=== PATIENT | female | born 1955 | race Caucasian/White ===

== ENCOUNTER → 2017-04-07 | Outpatient (CLI) | payer BC ==
[~2017-04-07] MED LIST: AMIO200T42 PO; APIX5TAB PO; ASCO1TAB15 PO; ASPI325T17 PO; CART1TAB4 PO; KRIL1CAP22 PO; LEVO75TA5 PO; LISI5TAB7 PO; MULT-717 PO; VENL75CA PO; VITA1TAB28 PEG
== END | disposition home or self-care (01) ==
LOC: CFH 10:37
PROVIDERS: ATTEND Thoracic Surgery (Cardiothoracic Vascular Surgery)
DX: K21.9 Gastro-esophageal reflux disease without esophagitis (principal); R11.10 Vomiting, unspecified; Z98.84 Bariatric surgery status
CPT/HCPCS: 74241

== ENCOUNTER 2017-08-25 11:13 | Day surgery (SDC) | payer BC ==
[~2017-08-25] VITALS: Ht 177.8 cm; Wt 137.3 kg
[~2017-08-25 11:13] MED LIST changes: -VITA1TAB28 PEG; +VITA1TAB28 PO
[2017-08-25 12:18] VITALS: BP 159/90
[2017-08-25 12:34] LABS: BASOPHILS # (AUTO) 0.03 x10^3/uL (0-0.1); BASOPHILS % (AUTO) 1 % (0-1); EOSINOPHILS # (AUTO) 0.09 x10^3/uL (0-0.4); EOSINOPHILS % (AUTO) 2 % (1-7); LYMPHOCYTES # (AUTO) 1.05 x10^3/uL (1-3.4); LYMPHOCYTES % (AUTO) 21 % (22-44); MD NO; MEAN CORPUSCULAR HEMOGLOBIN 32.8 pg (27.0-34.8); MEAN CORPUSCULAR VOLUME 96.5 fL (80-100); MEAN PLATELET VOLUME 10.3 fL (7.4-10.4); MONOCYTES # (AUTO) 0.43 x10^3/uL (0.2-0.8); MONOCYTES % (AUTO) 9 % (2-9); NEUTROPHILS # (AUTO) 3.43 x10^3/uL (1.8-6.8); NEUTROPHILS % (AUTO) 68 % (42-75); PLATELET COUNT 184 x10^3/uL (130-400); RED BLOOD COUNT 4.77 x10^6/uL (3.82-5.3); RED CELL DISTRIBUTION WIDTH 14.6 % (9.6-15.2)
[2017-08-25 12:43] LABS: ANION GAP 6 mmol/L (5-15); CALCIUM 8.8 mg/dL (8.5-10.1); CHLORIDE 112 mmol/L (98-107)
[2017-08-25] MEDS ORDERED: PROPOFOL 10 MG/ML, 20ML ONE (13:22)
== END 2017-08-25 15:00 | disposition home or self-care (01) ==
LOC: CACL 11:13
PROVIDERS: ATTEND Internal Medicine Cardiovascular Disease
DX: I48.91 Unspecified atrial fibrillation (principal); E78.5 Hyperlipidemia, unspecified; F32.9 Major depressive disorder, single episode, unspecified; G47.33 Obstructive sleep apnea (adult) (pediatric); I10 Essential (primary) hypertension; E03.9 Hypothyroidism, unspecified; E66.9 Obesity, unspecified; Z79.899 Other long term (current) drug therapy
CPT/HCPCS: 36415; 80048; 85025; 92960; J2704

== ENCOUNTER → 2018-08-30 | Outpatient (CLI) | payer BC | END | disposition home or self-care (01) | LOC: CVU 08:37 | PROVIDERS: ATTEND Internal Medicine Cardiovascular Disease | DX: I08.8 Other rheumatic multiple valve diseases (principal); I10 Essential (primary) hypertension; I48.0 Paroxysmal atrial fibrillation | CPT/HCPCS: 93306 ==

== ENCOUNTER 2018-10-05 12:33 | Outpatient (CLI) | payer BC | END 2018-10-05 23:59 | disposition home or self-care (01) | LOC: CFH 12:33 | PROVIDERS: ATTEND Internal Medicine Cardiovascular Disease | DX: I51.7 Cardiomegaly (principal); J98.4 Other disorders of lung; I48.0 Paroxysmal atrial fibrillation | CPT/HCPCS: 71046; 75572; 82565; Q9967 ==

== ENCOUNTER 2018-10-06 09:34 | Observation (INO) | payer BC ==
[~2018-10-06] VITALS: Ht 177.8 cm; Wt 138.8 kg
[2018-10-07 08:00] VITALS: BP 110/70
== END 2018-10-07 12:35 | disposition home or self-care (01) ==
LOC: CACL 09:34 → ORIP 15:19 → 5SO 16:36 → DCLOUNGE 10-07 12:04
PROVIDERS: ADMIT Internal Medicine Cardiovascular Disease; ATTEND Internal Medicine Cardiovascular Disease
DX: I48.0 Paroxysmal atrial fibrillation (principal); R53.83 Other fatigue; I10 Essential (primary) hypertension; E78.5 Hyperlipidemia, unspecified; E03.9 Hypothyroidism, unspecified; Z79.01 Long term (current) use of anticoagulants; Z79.899 Other long term (current) drug therapy
CPT/HCPCS: 36415; 80048; 85025; 85610; 85730; 93308; 93312; 93321; 93325; 93613; 93656; 93657; 93662; C1730; C1732; C1759; C1766; C1893; C1894; G0378; J0330; J1100; J1644; J2250; J2370; J2405; J2704; J3010; 85347

== ENCOUNTER 2018-10-24 13:00 | Day surgery (SDC) | payer BC ==
[~2018-10-24] VITALS: Ht 177.8 cm; Wt 133.6 kg
[2018-10-24 13:45] VITALS: BP 119/89
== END 2018-10-24 15:37 | disposition home or self-care (01) ==
LOC: CACL 13:00
PROVIDERS: ATTEND Internal Medicine Cardiovascular Disease
DX: I48.91 Unspecified atrial fibrillation (principal)
CPT/HCPCS: 36415; 80048; 92960; J2704

== ENCOUNTER → 2020-01-28 | Outpatient (CLI) | payer BC, MEDICARE ==
[~2020-01-28] MED LIST changes: +ACET325T26 PO; +CETI10CA PO; +CHOL400C11 PO; +FLUO20CA23 PO; +GINS250C2 PO; +METO25TA91 PO; +MULT-806 PO; +OMNIPAQUE 350 MG/ML, 150 ML BOTTLE ONE
== END | disposition home or self-care (01) ==
LOC: CFH 11:10
PROVIDERS: ATTEND Internal Medicine Cardiovascular Disease
DX: I48.0 Paroxysmal atrial fibrillation (principal)
CPT/HCPCS: 71046; 75572; Q9967

== ENCOUNTER 2020-01-31 05:56 | Inpatient (IN) | payer BC, MEDICARE ==
[~2020-01-31] VITALS: Ht 177.8 cm; Wt 126.5 kg
[~2020-01-31 05:56] MED LIST changes: -OMNIPAQUE 350 MG/ML, 150 ML BOTTLE ONE
[2020-01-31 06:22] VITALS: BP 98/64
[2020-01-31] MEDS ORDERED: SODIUM CHLORIDE 0.9% 1,000 ML IV SCH (06:30)
[2020-01-31] MEDS ORDERED: SODIUM CHLORIDE 0.9% 1,000 ML IV ONE (06:30)
[2020-01-31] MEDS ORDERED: PLEASE ENTER HEIGHT AND WEIGHT MC SCH (06:30)
[2020-01-31] MEDS ORDERED: METO50TA4 PO (06:36)
[2020-01-31 06:48] LABS: BASOPHILS % (AUTO) 1 % (0-1); EOSINOPHILS % (AUTO) 3 % (1-7); LYMPHOCYTES % (AUTO) 21 % (22-44); MEAN CORPUSCULAR HEMOGLOBIN 31.9 pg (27.0-34.8); MEAN CORPUSCULAR HGB CONC 32.8 g/dL (32.4-35.8); MEAN PLATELET VOLUME 9.7 fL (7.4-10.4); MONOCYTES % (AUTO) 10 % (2-9); NEUTROPHILS % (AUTO) 65 % (42-75); PLATELET COUNT 193 x10^3/uL (130-400); RED BLOOD COUNT 4.57 x10^6/uL (3.82-5.3); RED CELL DISTRIBUTION WIDTH 13.4 % (9.6-15.2)
[2020-01-31 06:49] LABS: MD NO
[2020-01-31 07:01] LABS: ANION GAP 4 mmol/L (5-15); CHLORIDE 111 mmol/L (98-107)
[2020-01-31 07:02] LABS: CREATININE 0.86 mg/dL (0.55-1.02)
[2020-01-31] MEDS ORDERED: LIDOCAINE 2%, 20ML ONE (07:25)
[2020-01-31] MEDS ORDERED: MIDAZOLAM 1 MG/ML, 2ML ONE (07:49)
[2020-01-31] MEDS ORDERED: PROPOFOL 50 ML ONE (07:49)
[2020-01-31] MEDS ORDERED: FENTANYL PF 250 MCG/5ML ONE (07:49)
[2020-01-31] MEDS ORDERED: SUCCINYLCHOLINE 20 MG/ML, 10ML ONE (09:03)
[2020-01-31] MEDS ORDERED: DEXAMETHASONE 4 MG/ML, 1ML ONE (09:03)
[2020-01-31] MEDS ORDERED: HEPARIN 1,000 UNITS/ML, 10ML ONE ×2 (09:03)
[2020-01-31] MEDS ORDERED: ROCURONIUM 10MG/ML,5ML ONE (09:03)
[2020-01-31] MEDS ORDERED: ONDANSETRON 2MG/ML, 2ML ONE (09:03)
[2020-01-31] MEDS ORDERED: APIXABAN 5 MG TABLET ONE (09:11)
[2020-01-31] MEDS ORDERED: PROTAMINE SULFATE 10 MG/ML, 5ML ONE (11:44)
[2020-01-31] MEDS: APIXABAN 5 MG TABLET PO SCH ×2 (12:00→20:50)
[2020-01-31] MEDS ORDERED: APIXABAN 5 MG TABLET PO SCH (12:00)
[2020-01-31] MEDS ORDERED: OXYcodone 5 MG/5 ML ORAL.SOL UDC ONE (12:22)
[2020-01-31] MEDS ORDERED: FENTANYL PF 100 MCG/2ML ONE (12:22)
[2020-01-31] MEDS: FENTANYL PF 100 MCG/2ML IV PRN ×3 (12:23→13:04)
[2020-01-31] MEDS ORDERED: morphine SULFATE 10 MG/ML, 1ML IVPush PRN (12:30)
[2020-01-31] MEDS ORDERED: ONDANSETRON 2MG/ML, 2ML IVPush PRN (12:30)
[2020-01-31] MEDS ORDERED: EPHEDRINE 50 MG/ML, 1ML IVPush PRN (12:30)
[2020-01-31] MEDS ORDERED: EPHEDRINE 50 MG/ML, 1ML IM PRN (12:30)
[2020-01-31] MEDS ORDERED: DIPHENHYDRAMINE 50 MG/ML, 1ML IVPush PRN (12:30)
[2020-01-31] MEDS ORDERED: DIAZEPAM 5 MG/ML, 2ML IVPush PRN (12:30)
[2020-01-31] MEDS ORDERED: ACETAMINOPHEN 325 MG TABLET PO PRN (12:30)
[2020-01-31] MEDS ORDERED: OXYcodone 5 MG/5 ML ORAL.SOL UDC PO PRN (12:30)
[2020-01-31] MEDS ORDERED: MEPERIDINE/PF 25MG/0.5ML IVPush PRN (12:30)
[2020-01-31] MEDS ORDERED: PROMETHAZINE 25 MG/ML, 1ML IVPush PRN (12:30)
[2020-01-31] MEDS ORDERED: ACETAMINOPHEN 650 MG/20.3 ML UDC ONE (13:42)
[2020-01-31 15:53] VITALS: BP 95/65
[2020-01-31] MEDS: MULTIVITAMINS WITH IRON TABLET PO SCH (16:49)
[2020-01-31] MEDS: COLCHICINE 0.6 MG CAPSULE PO SCH (20:51)
[2020-01-31 20:58] VITALS: BP 98/61
[2020-02-01] MEDS: ACETAMINOPHEN 325 MG TABLET PO PRN ×3 (00:58→22:49)
[2020-02-01 01:34] VITALS: BP 126/75
[2020-02-01 01:43] VITALS: BP 101/60
[2020-02-01 06:44] VITALS: BP 105/52
[2020-02-01] MEDS ORDERED: AMIO200T42 PO ×2 (08:41)
[2020-02-01] MEDS ORDERED: COLC0.6C3 PO (08:41)
[2020-02-01] MEDS ORDERED: GINSENG PO SCH (09:00)
[2020-02-01] MEDS ORDERED: AST PO SCH (09:00)
[2020-02-01] MEDS ORDERED: LISINOPRIL 10 MG TABLET PO SCH (09:00)
[2020-02-01] MEDS ORDERED: [UNRECOGNIZED DRUG - OTHER] PO SCH (09:00)
[2020-02-01] MEDS ORDERED: PHOSPHO PO SCH (09:00)
[2020-02-01] MEDS ORDERED: DHA PO SCH (09:00)
[2020-02-01] MEDS ORDERED: METOPROLOL SUCCINATE 50 MG TAB.ER.24H PO SCH (09:00)
[2020-02-01] MEDS ORDERED: EPA PO SCH (09:00)
[2020-02-01] MEDS ORDERED: KRILL PO SCH (09:00)
[2020-02-01] MEDS ORDERED: TEMPLATE NON-FORMULARY MED. (Multivits-Min/Fa/Lycopene/Lut** (Centrum Silver Tablet**) 1 T PO SCH (09:00)
[2020-02-01] MEDS ORDERED: TEMPLATE NON-FORMULARY MED. (Cartilage/Collagen/Bor/Hyalur (Move Free Ultra Tablet) 1 TAB) PO SCH (09:00)
[2020-02-01] MEDS: CETIRIZINE 10 MG TABLET PO SCH ×2 (09:39→09:53)
[2020-02-01] MEDS: CHOLECALCIFEROL 400 UNITS TABLET PO SCH (09:39)
[2020-02-01] MEDS: FLUOXETINE HCL 20 MG CAPSULE PO SCH (09:39)
[2020-02-01] MEDS: COLCHICINE 0.6 MG CAPSULE PO SCH ×2 (09:39→22:50)
[2020-02-01] MEDS: FLECAINIDE 50MG TABLET PO SCH ×2 (09:42→21:00)
[2020-02-01] MEDS: APIXABAN 5 MG TABLET PO SCH ×3 (09:42→22:49)
[2020-02-01] MEDS: LISINOPRIL 10 MG TABLET PO SCH (09:43)
[2020-02-01] MEDS: LEVOTHYROXINE 137 MCG TABLET PO SCH (09:48)
[2020-02-01] MEDS: MULTIVITAMINS WITH IRON TABLET PO SCH (09:48)
[2020-02-01 14:26] VITALS: BP 100/66
[2020-02-01 21:00] VITALS: BP 111/72
[2020-02-02 00:37] VITALS: BP 107/65
[2020-02-02 08:36] VITALS: BP 105/66
[2020-02-02] MEDS: LEVOTHYROXINE 137 MCG TABLET PO SCH (08:37)
[2020-02-02] MEDS: COLCHICINE 0.6 MG CAPSULE PO SCH ×2 (08:37→19:56)
[2020-02-02] MEDS: LISINOPRIL 10 MG TABLET PO SCH (08:38)
[2020-02-02] MEDS: FLUOXETINE HCL 20 MG CAPSULE PO SCH (08:38)
[2020-02-02] MEDS: CHOLECALCIFEROL 400 UNITS TABLET PO SCH (08:38)
[2020-02-02] MEDS: CETIRIZINE 10 MG TABLET PO SCH (08:38)
[2020-02-02] MEDS: MULTIVITAMINS WITH IRON TABLET PO SCH (08:39)
[2020-02-02] MEDS: APIXABAN 5 MG TABLET PO SCH (10:19)
[2020-02-02] MEDS ORDERED: CEFAZOLIN PMX 1GM/50ML 50 ML IVPB ONE (11:00)
[2020-02-02 12:12] VITALS: BP 120/75
[2020-02-02 18:56] VITALS: BP 115/75
[2020-02-02] MEDS: SODIUM CHLORIDE 0.9% 1,000 ML IV SCH (19:56)
[2020-02-03 00:31] VITALS: BP 111/72
[2020-02-03] MEDS: SODIUM CHLORIDE 0.9% 1,000 ML IV SCH ×3 (05:00→20:56)
[2020-02-03 07:26] VITALS: BP 116/75
[2020-02-03] MEDS ORDERED: MIDAZOLAM 1 MG/ML, 5ML ONE (09:34)
[2020-02-03] MEDS ORDERED: FENTANYL PF 100 MCG/2ML ONE (09:34)
[2020-02-03] MEDS ORDERED: CEFAZOLIN 1,000 MG ONE (09:35)
[2020-02-03] MEDS ORDERED: LIDOCAINE 2%, 20ML ONE (09:35)
[2020-02-03] MEDS ORDERED: CEFAZOLIN PMX 1GM/50ML 50 ML ONE (09:35)
[2020-02-03] MEDS ORDERED: HOLD MEDICATION MC PRN (11:30)
[2020-02-03] MEDS: LISINOPRIL 10 MG TABLET PO SCH (11:52)
[2020-02-03] MEDS: LEVOTHYROXINE 137 MCG TABLET PO SCH (11:52)
[2020-02-03] MEDS: FLUOXETINE HCL 20 MG CAPSULE PO SCH (11:52)
[2020-02-03] MEDS: MULTIVITAMINS WITH IRON TABLET PO SCH (11:53)
[2020-02-03] MEDS: COLCHICINE 0.6 MG CAPSULE PO SCH ×2 (11:53→20:55)
[2020-02-03] MEDS: CHOLECALCIFEROL 400 UNITS TABLET PO SCH (11:53)
[2020-02-03] MEDS: FLECAINIDE 100MG TABLET PO SCH ×2 (11:53→22:58)
[2020-02-03] MEDS: CETIRIZINE 10 MG TABLET PO SCH (11:55)
[2020-02-03 13:40] VITALS: BP 106/77
[2020-02-03] MEDS: ACETAMINOPHEN 325 MG TABLET PO PRN ×2 (16:33→22:58)
[2020-02-03] MEDS: CEFAZOLIN PMX 1GM/50ML 100 ML IVPB SCH (17:51)
[2020-02-03 20:07] VITALS: BP 104/76
[2020-02-03] MEDS: SODIUM CHLORIDE FLUSH 10ML SYR IVF SCH (20:56)
[2020-02-04 01:23] VITALS: BP 103/68
[2020-02-04] MEDS: CEFAZOLIN PMX 1GM/50ML 100 ML IVPB SCH (01:36)
[2020-02-04 07:27] VITALS: BP 111/79
[2020-02-04] MEDS ORDERED: FLEC100T PO (08:21)
[2020-02-04] MEDS: CETIRIZINE 10 MG TABLET PO SCH (09:00)
[2020-02-04] MEDS: SODIUM CHLORIDE FLUSH 10ML SYR IVF SCH (09:00)
[2020-02-04] MEDS: MULTIVITAMINS WITH IRON TABLET PO SCH (09:44)
[2020-02-04] MEDS: COLCHICINE 0.6 MG CAPSULE PO SCH (09:45)
[2020-02-04] MEDS: LEVOTHYROXINE 137 MCG TABLET PO SCH (09:45)
[2020-02-04] MEDS: LISINOPRIL 10 MG TABLET PO SCH (09:45)
[2020-02-04] MEDS: CHOLECALCIFEROL 400 UNITS TABLET PO SCH (09:45)
[2020-02-04] MEDS: FLUOXETINE HCL 20 MG CAPSULE PO SCH (09:46)
[2020-02-04] MEDS: FLECAINIDE 100MG TABLET PO SCH (11:00)
== END 2020-02-04 13:23 | disposition home or self-care (01) | DRG 243 ==
LOC: CACL 05:56 → 5SO 14:50 → CACL 16:49 → OBSVTOIN 16:50 → 5SO 16:50 → DCLOUNGE 02-04 13:09
PROVIDERS: ADMIT Internal Medicine Cardiovascular Disease; ATTEND Internal Medicine Cardiovascular Disease
PROC: 02583ZZ Destruction of Conduction Mechanism, Percutaneous Approach (ICD-10-PCS; 2020-01-31)
PROC: 02K83ZZ Map Conduction Mechanism, Percutaneous Approach (ICD-10-PCS; 2020-01-31)
PROC: B24BYZZ Ultrasonography of Heart with Aorta using Other Contrast (ICD-10-PCS; 2020-01-31)
PROC: 4A0234Z Measurement of Cardiac Electrical Activity, Percutaneous Approach (ICD-10-PCS; principal; 2020-01-31 08:00)
PROC: 0JH606Z Insertion of Pacemaker, Dual Chamber into Chest Subcutaneous Tissue and Fascia, Open Approach (ICD-10-PCS; 2020-02-03)
PROC: 02HK3JZ Insertion of Pacemaker Lead into Right Ventricle, Percutaneous Approach (ICD-10-PCS; 2020-02-03)
PROC: 02H63JZ Insertion of Pacemaker Lead into Right Atrium, Percutaneous Approach (ICD-10-PCS; 2020-02-03)
PROC: B51N1ZZ Fluoroscopy of Left Upper Extremity Veins using Low Osmolar Contrast (ICD-10-PCS; 2020-02-03)
DX: I48.0 Paroxysmal atrial fibrillation (principal); D68.69 Other thrombophilia; D64.9 Anemia, unspecified; I48.4 Atypical atrial flutter; E03.9 Hypothyroidism, unspecified; E55.9 Vitamin D deficiency, unspecified; E66.01 Morbid (severe) obesity due to excess calories; Z20.828 Contact with and (suspected) exposure to other viral communicable diseases; F32.9 Major depressive disorder, single episode, unspecified; F41.9 Anxiety disorder, unspecified; I10 Essential (primary) hypertension; I49.5 Sick sinus syndrome; S30.1XXA Contusion of abdominal wall, initial encounter; Z79.01 Long term (current) use of anticoagulants; Z79.899 Other long term (current) drug therapy; Y93.89 Activity, other specified; Y92.89 Other specified places as the place of occurrence of the external cause; Y99.8 Other external cause status
CPT/HCPCS: 33208; 36005; 36415; 93613; 93655; 93656; 93657; 93662; J3490; 71045; 80048; 85014; 85018; 85025; 85347; 87635; 93005; 93306; 93312; 93320; 93321; 99156; 99157; C1732; C1766; C1779; C1785; C1892; C1893; C1894; G0378; J0690; J1100; J1644; J2250; J2405; J2704; J2720; J3010; C1730; C1759; J0330; J7030; Q9967

== ENCOUNTER 2020-05-05 09:25 | Day surgery (SDC) | payer MEDICARE, OTHER ==
[~2020-05-05] VITALS: Ht 177.8 cm; Wt 127.3 kg
[~2020-05-05 09:25] MED LIST changes: +COLC0.6C3 PO; +ESCI10TA10 PO; +FLEC100T PO; +METO50TA4 PO; +SOTA80TA18 PO
[2020-05-05 09:58] VITALS: BP 121/79
[2020-05-05 10:12] LABS: BASOPHILS % (AUTO) 1 % (0-1); EOSINOPHILS % (AUTO) 2 % (1-7); LYMPHOCYTES % (AUTO) 21 % (22-44); MEAN CORPUSCULAR HEMOGLOBIN 32.4 pg (27.0-34.8); MEAN CORPUSCULAR HGB CONC 33.8 g/dL (32.4-35.8); MEAN PLATELET VOLUME 9.8 fL (7.4-10.4); MONOCYTES % (AUTO) 10 % (2-9); NEUTROPHILS % (AUTO) 65 % (42-75); PLATELET COUNT 162 x10^3/uL (130-400); RED BLOOD COUNT 4.58 x10^6/uL (3.82-5.3); RED CELL DISTRIBUTION WIDTH 13.9 % (9.6-15.2)
[2020-05-05 10:13] LABS: MD NO
[2020-05-05 10:16] LABS: ANION GAP 6 mmol/L (5-15); CALCIUM 8.7 mg/dL (8.5-10.1); CHLORIDE 114 mmol/L (98-107); CREATININE 0.87 mg/dL (0.55-1.02)
[2020-05-05] MEDS ORDERED: PROPOFOL 10 MG/ML, 20ML ONE (10:37)
[2020-05-05] MEDS ORDERED: SOTA120T26 PO (11:16)
== END 2020-05-05 11:58 | disposition home or self-care (01) ==
LOC: CACL 09:25
PROVIDERS: ATTEND Internal Medicine Cardiovascular Disease
DX: I48.92 Unspecified atrial flutter (principal); I48.0 Paroxysmal atrial fibrillation; I10 Essential (primary) hypertension; E03.9 Hypothyroidism, unspecified; G47.30 Sleep apnea, unspecified; E66.9 Obesity, unspecified; Z68.39 Body mass index [BMI] 39.0-39.9, adult; Z79.01 Long term (current) use of anticoagulants; Z79.890 Hormone replacement therapy; Z79.899 Other long term (current) drug therapy; Z95.0 Presence of cardiac pacemaker
CPT/HCPCS: 36415; 80048; 85025; 92960; 93005; J2704